=== PATIENT | male | born 2000 | race African-American/Black ===

== ENCOUNTER 2021-08-20 16:07 | Emergency (ER) | payer OTHER ==
[~2021-08-20] VITALS: Ht 180.3 cm; Wt 74.9 kg
== END 2021-08-20 17:35 | disposition home or self-care (01) ==
LOC: FSED 16:35
DX: S50.01XA Contusion of right elbow, initial encounter (principal); W18.30XA Fall on same level, unspecified, initial encounter; Y93.67 Activity, basketball; Y92.310 Basketball court as the place of occurrence of the external cause
CPT/HCPCS: 99283

== ENCOUNTER 2021-10-26 07:17 | Emergency (ER) | payer OTHER ==
[~2021-10-26] VITALS: Ht 182.9 cm; Wt 74.6 kg
[2021-10-26] MEDS ORDERED: ONDANSETRON ODT4 MG PO (07:35)
[2021-10-26] MEDS ORDERED: THERAFLU FLU &1 EAC1 PO (07:35)
[2021-10-26] MEDS ORDERED: IBUPROFEN IB200 MG PO (07:35)
[2021-10-26] MEDS ORDERED: FAMOTIDINE20 MG PO (07:35)
[2021-10-26] MEDS ORDERED: ONDANSETRON HCL 4 MG ORAL DISINTEGRATING TAB PO ONE (07:45)
[2021-10-26] MEDS ORDERED: ACETAMINOPHEN 325 MG TAB PO ONE (07:45)
[2021-10-26] MEDS ORDERED: IBUPROFEN 600 MG TAB PO ONE (07:45)
[2021-10-26] MEDS ORDERED: IBUPROFEN 600 MG TAB ONE (07:48)
[2021-10-26] MEDS ORDERED: ONDANSETRON HCL 4 MG ORAL DISINTEGRATING TAB ONE (07:48)
[2021-10-26] MEDS ORDERED: ACETAMINOPHEN 325 MG TAB ONE (07:48)
== END 2021-10-26 07:48 | disposition home or self-care (01) ==
LOC: FSED 07:30
DX: R05.9 Cough, unspecified (principal); R11.2 Nausea with vomiting, unspecified; B34.9 Viral infection, unspecified; Z20.822 Contact with and (suspected) exposure to COVID-19; Z71.89 Other specified counseling
CPT/HCPCS: 99283; Q0162

== ENCOUNTER 2023-02-25 12:42 | Emergency (ER) | payer OTHER ==
[~2023-02-25] VITALS: Ht 180.3 cm; Wt 74.4 kg
[~2023-02-25 12:42] MED LIST: FAMOTIDINE20 MG PO; IBUPROFEN IB200 MG PO; ONDANSETRON ODT4 MG PO; THERAFLU FLU &1 EAC1 PO
[2023-02-25] MEDS ORDERED: FAMOTIDINE 20 MG/2 ML VIAL IV STA (13:47)
[2023-02-25] MEDS ORDERED: SODIUM CHLORIDE 0.9% 1000ML 1,000 ML IV ONE ×2 (14:00→15:15)
[2023-02-25] MEDS ORDERED: FAMOTIDINE 20 MG/2 ML VIAL IV ONE (14:34)
[2023-02-25] MEDS ORDERED: SODIUM CHLORIDE 0.9% 1000ML 1,000 ML ONE ×2 (14:34→15:07)
[2023-02-25 15:45] VITALS: O2SAT 99
[2023-02-25] MEDS ORDERED: ONDANSETRON ODT4 MG PO (15:52)
[2023-02-25] MEDS ORDERED: PEPCID20 MG PO (15:52)
== END 2023-02-25 16:02 | disposition home or self-care (01) ==
LOC: FSED 13:17
DX: R10.13 Epigastric pain (principal); E86.0 Dehydration; R74.8 Abnormal levels of other serum enzymes; R11.2 Nausea with vomiting, unspecified
CPT/HCPCS: 80053; 81003; 85025; 96374; 96376; 99283; J7030